=== PATIENT | female | born 1965 | race Caucasian/White ===

== ENCOUNTER 2020-10-08 00:23 | Emergency (ER) | payer OTHER ==
[~2020-10-08 00:23] MED LIST: ETODOLAC500 MG PO; VOLTAREN **OUT75 MG PO
[2020-10-08] MEDS ORDERED: ETODOLAC500 MG PO (04:00)
[2020-10-08] MEDS ORDERED: PERCOCET 5-3251 EACH PO (04:00)
== END 2020-10-08 04:30 | disposition home or self-care (01) ==
LOC: FER 00:23
DX: S63.512A Sprain of carpal joint of left wrist, initial encounter (principal); F17.200 Nicotine dependence, unspecified, uncomplicated; W19.XXXA Unspecified fall, initial encounter; Y92.69 Other specified industrial and construction area as the place of occurrence of the external cause; Y99.0 Civilian activity done for income or pay
CPT/HCPCS: 73110; J1885